=== PATIENT | male | born 1965 | race Two or more races ===

== ENCOUNTER 2025-05-26 15:25 | Inpatient (IN) | payer MEDICARE, MEDICAID ==
[~2025-05-26] VITALS: Ht 175.3 cm; Wt 76.0 kg
[2025-05-26] MEDS: SODIUM CHLORIDE 0.9% 1,000 ML IV ONE ×2 (15:52→16:18)
[2025-05-26] MEDS: FAMOTIDINE 20 MG/2 ML VIAL IVP ONE (15:53)
[2025-05-26] MEDS: ACETAMINOPHEN 500 MG TABLET PO ONE (15:53)
[2025-05-26] MEDS ORDERED: MIDAZOLAM HCL 2 MG/2 ML VIAL ONE (15:54)
[2025-05-26] MEDS ORDERED: FentaNYL CITRATE PF 100 MCG/2 ML VIAL ONE (15:54)
[2025-05-26 15:55] LABS: PLATELET COUNT (AUTO) 160 K/uL (150-450); RED BLOOD CELL COUNT(AUTO) 4.43 MIL/uL (4.50-5.90); RED CELL DISTRIBUTION WIDTH 16.0 % (11.5-14.5); WHITE BLOOD COUNT (AUTO) 9.2 K/uL (4.5-11.0)
[2025-05-26 16:13] LABS: TROPONIN I-HIGH SENSITIVITY 7 ng/L (<76)
[2025-05-26] MEDS ORDERED: MAGNESIUM HYDROXIDE SUSPENSION 30 ML UDCUP PO PRN (16:15)
[2025-05-26] MEDS ORDERED: ACETAMINOPHEN 325 MG TABLET PO PRN (16:15)
[2025-05-26] MEDS: MORPHINE SULFATE 2 MG/ML SYRINGE IVP ONE (16:19)
[2025-05-26] MEDS: PANTOPRAZOLE SODIUM 40 MG/VIAL IVP SCH (16:19)
[2025-05-26 16:24] LABS: CREATINE KINASE, TOTAL ONLY 16.0 U/L (39-308)
[2025-05-26 16:29] LABS: COVID AG,FIA SOURCE NASAL SWAB
[2025-05-26 16:31] LABS: CALCIUM, TOTAL 8.1 mg/dL (8.8-10.5); CREATININE 1.57 mg/dL (0.60-1.30); GLOMERULAR FILTR. RATE CALC 45.0 mL/min (>60); GLUCOSE,RANDOM 109.0 mg/dL (70-110); SODIUM SERUM 141.0 mmol/L (136-145); UREA NITROGEN, BLOOD 36.0 mg/dL (7-18)
[2025-05-26 16:45] LABS: ASPARTATE AMINOTRANSFERASE 17.0 U/L (15-37); TOTAL PROTEIN, SERUM 6.4 g/dL (6.4-8.2)
[2025-05-26 16:53] LABS: SARS-COV2 (COVID) ANTIGEN,FIA Negative (Negative)
[2025-05-26 16:54] LABS: INFLUENZA TYPE A NEGATIVE FOR TYPE A (NEGATIVE); INFLUENZA TYPE B NEGATIVE FOR TYPE B (NEGATIVE)
[2025-05-26] MEDS ORDERED: LIDOCAINE/PF 2% 5 ML VIAL ONE (17:26)
[2025-05-26] MEDS ORDERED: PROPOFOL 1% 20 ML VIAL IVP ONE (17:26)
[2025-05-26] MEDS ORDERED: ROCURONIUM BROMIDE 10 MG/ML 5 ML VIAL ONE (17:26)
[2025-05-26] MEDS ORDERED: SUGAMMADEX SODIUM 200 MG/2 ML VIAL IVP ONE (17:26)
[2025-05-26] MEDS ORDERED: DEXAMETHASONE SOD PHOS 4 MG/ML VIAL ONE (17:26)
[2025-05-26] MEDS ORDERED: ONDANSETRON HCL 4 MG/2 ML VIAL ONE (17:26)
[2025-05-26 18:22] LABS: PH,URINE DRUG SCREEN 5.5 (5.0-8.0)
[2025-05-26 18:23] LABS: APPEARANCE,URINE HAZY (CLEAR); GLUCOSE, URINE (UA) NEGATIVE (NEGATIVE); LEUKOCYTE ESTERASE ,URINE MODERATE (NEGATIVE); NITRATE,URINE POSITIVE (NEGATIVE); OCCULT BLOOD,URINE SMALL (NEGATIVE); SPECIFIC GRAVITIY, URINE 1.017 (1.003-1.030)
[2025-05-26 18:54] LABS: ALCOHOL, URINE DRUG SCREEN NEGATIVE (NEGATIVE); AMPHET/METH SCREEN,URINE NEGATIVE (NEGATIVE); BARBITURATE SCREEN, URINE NEGATIVE (NEGATIVE); CANNABINOID SCREEN,URINE POSITIVE (NEGATIVE); COCAINE SCREEN,URINE NEGATIVE (NEGATIVE); METHADONE SCREEN, URINE NEGATIVE (NEGATIVE)
[2025-05-26 19:15] LABS: SQUAMOUS EPITHELIAL CELL,UR Few /LPF (None Seen)
[2025-05-26] MEDS: PIPERACILLIN SODIUM/TAZOBACTAM 4.5 GM in DEXTROSE 5%-WATER 100 ML IV ONE (20:51)
[2025-05-26] MEDS: MORPHINE SULFATE 2 MG/ML SYRINGE IVP PRN (20:51)
[2025-05-27] VITALS (28 sets, daily range): BP systolic 86–161; BP diastolic 43–94; PULSE 44–133; RESP 12–27; TEMP 97.2–98; O2SAT 50–100
[2025-05-27] MEDS ORDERED: RINGERS SOLUTION,LACTATED 1,000 ML IV ONE ×4 (00:11→16:45)
[2025-05-27] MEDS: BUPIVACAINE LIPOSOME/PF 1.3%-13.3MG/ML SUSP 20 ML VIAL INJ ONE (00:30)
[2025-05-27] MEDS ORDERED: SODIUM CHLORIDE 0.9% 1,000 ML ONE (01:56)
[2025-05-27] MEDS: BUPIVACAINE HCL/PF 0.25% 30 ML VIAL ONE (02:10)
[2025-05-27 03:03] LABS: ABG BASE EXCESS -8.3 mmol/L (-2.0-3.0); ABG CARBOXYHEMOGLOBIN 0.7 % (0.5-1.5); ABG HCO3 17.7 mmol/L (21.0-28.0); ABG METHEMOGLOBIN 0.3 % (0.0-1.5); ABG OXYGEN CONTENT 14.7 mL/dL (15.0-23.0); ABG OXYGEN SATURATION 95.8 % (94.0-98.0); ABG OXYHEMOGLOBIN 94.8 % (94.0-98.0); ABG PCO2 50 mmHg (32.0-48.0); ABG TOTAL HEMOGLOBIN 10.9 G/dL (13.5-17.5); FRACTIONATED INSPIRED OXYGEN 50.0 % (21-100.0); PO2, ARTERIAL BG 106.8 mmHg (83.0-108.0); SOURCE, BLOOD GAS ARTERIAL; TEMPERATURE, FAHRENHEIT, BG 97.5 FAHREN (96.0-98.6)
[2025-05-27 03:15] LABS: PLATELET COUNT (AUTO) 179 K/uL (150-450); RED BLOOD CELL COUNT(AUTO) 3.76 MIL/uL (4.50-5.90); RED CELL DISTRIBUTION WIDTH 16.6 % (11.5-14.5); WHITE BLOOD COUNT (AUTO) 17.5 K/uL (4.5-11.0)
[2025-05-27] MEDS ORDERED: SODIUM CHLORIDE 0.9% 500 ML IV ONE ×3 (03:18→22:00)
[2025-05-27 03:22] LABS: ABG PH 7.207 (7.350-7.450); SITE, BLOOD GAS RT RADIAL
[2025-05-27 03:23] LABS: ABG A-A DIFF O2 193.9 mmHg (10-20.0); ALLEN TEST, BLOOD GAS Positive; O2 DEVICE,BLOOD GAS VENTILATOR (ROOM AIR); PATIENT RATE, BG 12.0 min.; PEEP,BG 5 cm H2O; SET RATE, BG 12.0 min.; SPONTANEOUS VT, BG 514 ml; VT, ABG 500 ml
[2025-05-27] MEDS: FentaNYL CIT 1000MCG/0.9% NACL 100 ML IV PRN (03:26)
[2025-05-27 03:29] LABS: CALCIUM, TOTAL 7.5 mg/dL (8.8-10.5); CREATININE 1.32 mg/dL (0.60-1.30); GLOMERULAR FILTR. RATE CALC 56.0 mL/min (>60); GLUCOSE,RANDOM 182.0 mg/dL (70-110); SODIUM SERUM 140.0 mmol/L (136-145); UREA NITROGEN, BLOOD 29.0 mg/dL (7-18)
[2025-05-27 03:34] LABS: ASPARTATE AMINOTRANSFERASE 35.0 U/L (15-37); TOTAL PROTEIN, SERUM 5.2 g/dL (6.4-8.2)
[2025-05-27] MEDS: PROPOFOL 1000 MG/ISO-OSM 100 ML IV PRN (04:05)
[2025-05-27 07:56] LABS: ABG BASE EXCESS -6.3 mmol/L (-2.0-3.0); ABG CARBOXYHEMOGLOBIN 0.3 % (0.5-1.5); ABG HCO3 19.9 mmol/L (21.0-28.0); ABG METHEMOGLOBIN 0.2 % (0.0-1.5); ABG OXYGEN CONTENT 13.3 mL/dL (15.0-23.0); ABG OXYGEN SATURATION 97.7 % (94.0-98.0); ABG OXYHEMOGLOBIN 97.2 % (94.0-98.0); ABG PCO2 31 mmHg (32.0-48.0); ABG PH 7.394 (7.350-7.450); ABG TOTAL HEMOGLOBIN 9.4 G/dL (13.5-17.5); ALLEN TEST, BLOOD GAS Positive; FRACTIONATED INSPIRED OXYGEN 50.0 % (21-100.0); O2 DEVICE,BLOOD GAS VENTILATOR (ROOM AIR); PATIENT RATE, BG 16.0 min.; PEEP,BG 5 cm H2O; PO2, ARTERIAL BG 188.3 mmHg (83.0-108.0); SET RATE, BG 16.0 min.; SITE, BLOOD GAS RT RADIAL; SOURCE, BLOOD GAS ARTERIAL; TEMPERATURE, FAHRENHEIT, BG 97.6 FAHREN (96.0-98.6); VT, ABG 500 ml
[2025-05-27 07:57] LABS: SPONTANEOUS VT, BG 520 ml
[2025-05-27] MEDS: PANTOPRAZOLE SODIUM 80 MG in SODIUM CHLORIDE 0.9% 100 ML IV SCH (10:35)
[2025-05-27] MEDS: NOREPINEPHRINE 8 MG/0.9 % NACL 250 ML IV PRN (12:39)
[2025-05-27] MEDS: *CLINICAL-MEROPENEM DOSING CLINICAL ONE (13:15)
[2025-05-27] MEDS: MEROPENEM 1 GM in SODIUM CHLORIDE 0.9% 50 ML IV SCH (14:27)
[2025-05-27] MEDS: CASPOFUNGIN ACETATE 70 MG in SODIUM CHLORIDE 0.9% 250 ML IV ONE (14:28)
[2025-05-27] MEDS ORDERED: KETAMINE HCL 50 MG/ML 10 ML VIAL ONE (15:59)
[2025-05-27] MEDS ORDERED: SODIUM CHLORIDE 0.9% 2,000 ML ONE (16:11)
[2025-05-27] MEDS ORDERED: SODIUM CHLORIDE 0.9% 250 ML IV ONE (17:30)
[2025-05-27] MEDS ORDERED: RINGERS SOLUTION,LACTATED 2,000 ML IV ONE (17:31)
[2025-05-27] MEDS ORDERED: ALBUMIN HUMAN 25%-12.5GM/50ML 50 ML ONE (17:33)
[2025-05-27] MEDS ORDERED: ALBUMIN HUMAN 5%-12.5GM/250ML 250 ML IV ONE (17:33)
[2025-05-28] VITALS (37 sets, daily range): BP systolic 90–171; BP diastolic 42–88; PULSE 41–71; RESP 9–29; TEMP 97.5–98.5; O2SAT 94–100
[2025-05-28] MEDS ORDERED: SODIUM CHLORIDE 0.9% 500 ML IV ONE ×2 (01:09→03:45)
[2025-05-28 06:17] LABS: PLATELET COUNT (AUTO) 217 K/uL (150-450); RED BLOOD CELL COUNT(AUTO) 2.05 MIL/uL (4.50-5.90); RED CELL DISTRIBUTION WIDTH 16.9 % (11.5-14.5); WHITE BLOOD COUNT (AUTO) 10.9 K/uL (4.5-11.0)
[2025-05-28 06:34] LABS: CALCIUM, TOTAL 7.2 mg/dL (8.8-10.5); CREATININE 0.99 mg/dL (0.60-1.30); GLOMERULAR FILTR. RATE CALC > 60 mL/min (>60); GLUCOSE,RANDOM 128 mg/dL (70-110); SODIUM SERUM 145 mmol/L (136-145); UREA NITROGEN, BLOOD 25 mg/dL (7-18)
[2025-05-28] MEDS: POTASSIUM CHLORIDE 20 MEQ ER TABLET PO PRN (06:42)
[2025-05-28] MEDS: POTASSIUM CHL 10 MEQ/WATER 50 ML IV PRN (07:01)
[2025-05-28] MEDS ORDERED: SODIUM CHLORIDE 0.9% 250 ML IV ONE (07:39)
[2025-05-28] MEDS: ONDANSETRON HCL 4 MG/2 ML VIAL IVP PRN ×2 (08:59→13:32)
[2025-05-28 10:47] LABS: ABG BASE EXCESS -0.7 mmol/L (-2.0-3.0); ABG CARBOXYHEMOGLOBIN 0.8 % (0.5-1.5); ABG HCO3 24.0 mmol/L (21.0-28.0); ABG METHEMOGLOBIN 0.3 % (0.0-1.5); ABG OXYGEN CONTENT 9.0 mL/dL (15.0-23.0); ABG OXYGEN SATURATION 98.5 % (94.0-98.0); ABG OXYHEMOGLOBIN 97.4 % (94.0-98.0); ABG PCO2 28 mmHg (32.0-48.0); ABG PH 7.513 (7.350-7.450); FRACTIONATED INSPIRED OXYGEN 30.0 % (21-100.0); PO2, ARTERIAL BG 163.7 mmHg (83.0-108.0); SOURCE, BLOOD GAS ARTERIAL; TEMPERATURE, FAHRENHEIT, BG 98.6 FAHREN (96.0-98.6)
[2025-05-28 10:50] LABS: ABG TOTAL HEMOGLOBIN 6.3 G/dL (13.5-17.5); ALLEN TEST, BLOOD GAS Positive; O2 DEVICE,BLOOD GAS VENTILATOR (ROOM AIR); SITE, BLOOD GAS ARTERIAL LINE
[2025-05-28 10:51] LABS: PEEP,BG 5 cm H2O; VENT MODE, BG SPONTANEOUS (ROOM AIR)
[2025-05-28 10:52] LABS: PRESSURE SUPPORT, BG 8 cm H2O; SPONTANEOUS VT, BG 705 ml
[2025-05-28] MEDS: CASPOFUNGIN ACETATE 50 MG in SODIUM CHLORIDE 0.9% 250 ML IV SCH (13:21)
[2025-05-28 15:37] LABS: PLATELET COUNT (AUTO) 238 K/uL (150-450); RED BLOOD CELL COUNT(AUTO) 2.90 MIL/uL (4.50-5.90); RED CELL DISTRIBUTION WIDTH 16.5 % (11.5-14.5); WHITE BLOOD COUNT (AUTO) 12.7 K/uL (4.5-11.0)
[2025-05-28] MEDS: MORPHINE SULFATE 2 MG/ML SYRINGE IVP ONE (18:06)
[2025-05-29] VITALS: BP 113/55; PULSE 42; RESP 12; TEMP 97.4; O2SAT 96
[2025-05-29 04:00] VITALS: BP 153/73; PULSE 56; RESP 20; TEMP 98; O2SAT 97
[2025-05-29 06:24] LABS: PLATELET COUNT (AUTO) 249 K/uL (150-450); RED BLOOD CELL COUNT(AUTO) 2.91 MIL/uL (4.50-5.90); RED CELL DISTRIBUTION WIDTH 16.4 % (11.5-14.5); WHITE BLOOD COUNT (AUTO) 11.8 K/uL (4.5-11.0)
[2025-05-29 06:37] LABS: CALCIUM, TOTAL 7.8 mg/dL (8.8-10.5); CREATININE 1.04 mg/dL (0.60-1.30); GLOMERULAR FILTR. RATE CALC > 60 mL/min (>60); GLUCOSE,RANDOM 89 mg/dL (70-110); SODIUM SERUM 145 mmol/L (136-145); UREA NITROGEN, BLOOD 26 mg/dL (7-18)
[2025-05-29 06:45] LABS: GLUCOMETER DEV NAME(LOC) ICU.S7; GLUCOSE,POINT OF CARE 144 MG/DL (70-110)
[2025-05-29 06:52] LABS: TROPONIN I-HIGH SENSITIVITY 37 ng/L (<76)
[2025-05-29 08:00] VITALS: BP 148/89; PULSE 41; RESP 16; TEMP 97.9; O2SAT 95
[2025-05-29] MEDS ORDERED: OxyCODONE HCL 5 MG IR TABLET PO PRN (10:15)
[2025-05-29] MEDS: OxyCODONE HCL 10 MG IR TABLET PO PRN (11:45)
[2025-05-29 12:00] VITALS: BP 137/79; PULSE 44; RESP 16; TEMP 97.9; O2SAT 94
[2025-05-29] MEDS ORDERED: SODIUM CHLORIDE 0.9% 250 ML IV ONE ×2 (14:21→21:22)
[2025-05-29 16:00] VITALS: BP 158/93; PULSE 53; RESP 20; TEMP 97.9; O2SAT 95
[2025-05-29 20:08] VITALS: BP 119/76; PULSE 42; PULSE 52; RESP 20; TEMP 98.4; O2SAT 96
[2025-05-30] VITALS (17 sets, daily range): BP systolic 118–148; BP diastolic 61–84; PULSE 35–72; RESP 16–20; TEMP 97.7–98.2; O2SAT 95–99
[2025-05-30] MEDS: OxyCODONE HCL 5 MG IR TABLET PO PRN (03:25)
[2025-05-30 04:24] LABS: PLATELET COUNT (AUTO) 306 K/uL (150-450); RED BLOOD CELL COUNT(AUTO) 3.13 MIL/uL (4.50-5.90); RED CELL DISTRIBUTION WIDTH 16.0 % (11.5-14.5); WHITE BLOOD COUNT (AUTO) 12.9 K/uL (4.5-11.0)
[2025-05-30 04:37] LABS: CALCIUM, TOTAL 8.0 mg/dL (8.8-10.5); CREATININE 0.99 mg/dL (0.60-1.30); GLOMERULAR FILTR. RATE CALC > 60 mL/min (>60); GLUCOSE,RANDOM 90 mg/dL (70-110); SODIUM SERUM 141 mmol/L (136-145); UREA NITROGEN, BLOOD 23 mg/dL (7-18)
[2025-05-30 04:44] LABS: BAND NEUTROPHILS % (MANUAL) 1 % (0-5); EOSINOPHILS % (MANUAL) 2 % (1-6); LYMPHOCYTES % (MANUAL) 18 % (22-44); MONOCYTES % (MANUAL) 8 % (2-9); SEGMENTED NEUTROPHILS % 71 % (40-70)
[2025-05-30] MEDS ORDERED: TRANEXAMIC ACID 1,000 MG/10 ML VIAL IVP ONE (08:03)
[2025-05-30] MEDS ORDERED: DEXAMETHASONE SOD PHOS 4 MG/ML VIAL IVP ONE (08:03)
[2025-05-30] MEDS ORDERED: PROPOFOL 1% ISO-OSM 1000 MG/100 ML BOTTLE IV ONE (08:03)
[2025-05-30] MEDS ORDERED: PHENYLEPHRINE HCL 10 MG/ML VIAL IVP ONE (08:03)
[2025-05-30] MEDS ORDERED: ROCURONIUM BROMIDE 10 MG/ML 5 ML VIAL IVP ONE (08:03)
[2025-05-30] MEDS: PANTOPRAZOLE SODIUM 40 MG/VIAL IVP SCH (21:24)
[2025-05-31] VITALS (9 sets, daily range): BP systolic 110–145; BP diastolic 73–92; PULSE 39–100; RESP 17–26; TEMP 97.7–98.4; O2SAT 95–99
[2025-05-31 07:19] LABS: CALCIUM, TOTAL 8.0 mg/dL (8.8-10.5); CREATININE 0.96 mg/dL (0.60-1.30); GLOMERULAR FILTR. RATE CALC > 60 mL/min (>60); GLUCOSE,RANDOM 101 mg/dL (70-110); SODIUM SERUM 144 mmol/L (136-145); UREA NITROGEN, BLOOD 17 mg/dL (7-18)
[2025-05-31 07:29] LABS: PLATELET COUNT (AUTO) 337 K/uL (150-450); RED BLOOD CELL COUNT(AUTO) 3.26 MIL/uL (4.50-5.90); RED CELL DISTRIBUTION WIDTH 15.6 % (11.5-14.5); WHITE BLOOD COUNT (AUTO) 15.0 K/uL (4.5-11.0)
[2025-05-31 08:49] LABS: BAND NEUTROPHILS % (MANUAL) 2 % (0-5); EOSINOPHILS % (MANUAL) 4 % (1-6); LYMPHOCYTES % (MANUAL) 15 % (22-44); MONOCYTES % (MANUAL) 4 % (2-9); NUCLEATED RED BLOOD CELLS 2.0 % (0.0-0.0); SEGMENTED NEUTROPHILS % 75 % (40-70)
[2025-05-31 08:50] LABS: RBC MORPHOLOGY COMMENT ABNORMAL R
[2025-05-31] MEDS ORDERED: SODIUM CHLORIDE 0.9% 250 ML IV ONE (14:51)
[2025-06-01] VITALS (9 sets, daily range): BP systolic 91–120; BP diastolic 60–77; PULSE 52–66; RESP 16–18; TEMP 98.1–99.7; O2SAT 94–98
[2025-06-01 07:31] LABS: PLATELET COUNT (AUTO) 314 K/uL (150-450); RED BLOOD CELL COUNT(AUTO) 3.27 MIL/uL (4.50-5.90); RED CELL DISTRIBUTION WIDTH 15.6 % (11.5-14.5); WHITE BLOOD COUNT (AUTO) 13.4 K/uL (4.5-11.0)
[2025-06-01 08:06] LABS: ASPARTATE AMINOTRANSFERASE 15 U/L (15-37); CALCIUM, TOTAL 7.8 mg/dL (8.8-10.5); CREATININE 0.92 mg/dL (0.60-1.30); GLOMERULAR FILTR. RATE CALC > 60 mL/min (>60); GLUCOSE,RANDOM 94 mg/dL (70-110); SODIUM SERUM 141 mmol/L (136-145); TOTAL PROTEIN, SERUM 5.1 g/dL (6.4-8.2); UREA NITROGEN, BLOOD 13 mg/dL (7-18)
[2025-06-01 11:08] LABS: BAND NEUTROPHILS % (MANUAL) 1 % (0-5); LYMPHOCYTES % (MANUAL) 23 % (22-44); METAMYELOCYTES % 2 % (0-0); MONOCYTES % (MANUAL) 1 % (2-9); NUCLEATED RED BLOOD CELLS 2.0 % (0.0-0.0); SEGMENTED NEUTROPHILS % 73 % (40-70)
[2025-06-01 11:09] LABS: RBC MORPHOLOGY COMMENT NORMAL RBC MORPH
[2025-06-02] VITALS (8 sets, daily range): BP systolic 97–124; BP diastolic 61–84; PULSE 54–72; RESP 17–18; TEMP 98.1–98.4; O2SAT 96–98
[2025-06-02 06:48] LABS: PLATELET COUNT (AUTO) 285 K/uL (150-450); RED BLOOD CELL COUNT(AUTO) 3.36 MIL/uL (4.50-5.90); RED CELL DISTRIBUTION WIDTH 15.8 % (11.5-14.5); WHITE BLOOD COUNT (AUTO) 13.1 K/uL (4.5-11.0)
[2025-06-02 06:56] LABS: CALCIUM, TOTAL 7.8 mg/dL (8.8-10.5); CREATININE 1.02 mg/dL (0.60-1.30); GLOMERULAR FILTR. RATE CALC > 60 mL/min (>60); GLUCOSE,RANDOM 88 mg/dL (70-110); SODIUM SERUM 141 mmol/L (136-145); UREA NITROGEN, BLOOD 13 mg/dL (7-18)
[2025-06-02] MEDS: MULTIVITAMINS WITH MINERALS, THERAPEUTIC TABLET PO SCH (08:19)
[2025-06-02 08:51] LABS: BAND NEUTROPHILS % (MANUAL) 1 % (0-5); LYMPHOCYTES % (MANUAL) 22 % (22-44); MONOCYTES % (MANUAL) 7 % (2-9); NUCLEATED RED BLOOD CELLS 1.0 % (0.0-0.0); SEGMENTED NEUTROPHILS % 70 % (40-70)
[2025-06-02 08:53] LABS: RBC MORPHOLOGY COMMENT ABNORMAL R
[2025-06-02] MEDS ORDERED: HAEMOPH B POLY CONJ-TET TOX/PF 10 MCG/0.5 ML VIAL IM. ONE ×2 (13:45→14:00)
[2025-06-02] MEDS: *CLINICAL-RX DOSING [ENTER DRUG IN COMMENTS] CLINICAL ONE ×3 (13:45)
[2025-06-02] MEDS: ERTAPENEM SODIUM 1 GM in SODIUM CHLORIDE 0.9% 50 ML IV SCH (22:36)
[2025-06-03 04:34] VITALS: BP 115/94; PULSE 64; RESP 18; TEMP 98.2; O2SAT 98
[2025-06-03 08:55] VITALS: BP 115/75; PULSE 60; RESP 18; TEMP 98.6; O2SAT 96
[2025-06-03 11:56] VITALS: BP 96/66; PULSE 66; RESP 18; TEMP 99; O2SAT 99
[2025-06-03] MEDS ORDERED: SODIUM CHLORIDE 0.9% 250 ML IV ONE (14:15)
[2025-06-03] MEDS: MENINGOCOCCAL B VACCINE,4-COMP 0.5 ML SYRINGE IM. ONE (14:41)
[2025-06-03 14:42] VITALS: BP 99/62; PULSE 68; RESP 18; TEMP 98.8; O2SAT 95
[2025-06-03] MEDS: HAEMOPH B POLY CONJ-TET TOX/PF 10 MCG/0.5 ML VIAL IM. ONE (14:48)
[2025-06-03] MEDS: PNEUMOC 20-VAL CONJ-DIP CRM/PF 0.5 ML SYRINGE IM. ONE (14:53)
[2025-06-03] MEDS: [UNRECOGNIZED DRUG - OTHER] IM. ONE (14:58)
[2025-06-03] MEDS ORDERED: [UNRECOGNIZED DRUG - CODE] IV (16:24)
[2025-06-03] MEDS ORDERED: ERTA1VIA9 IVPB (16:26)
[2025-06-03] MEDS ORDERED: PANT-31 PO (16:27)
[2025-06-03] MEDS ORDERED: MULT-14 PO (16:27)
[2025-06-03] MEDS ORDERED: ACET-2247 PO (16:28)
[2025-06-03] MEDS ORDERED: OXYC5 PO (16:29)
[2025-06-03] MEDS ORDERED: QUET25TA PO (16:29)
== END 2025-06-03 17:52 | DRG 853 ==
LOC: EMS 15:25 → EDH 16:04 → UNDOADMIN 16:04 → ICU 05-27 02:20 → 5N 05-29 20:29 → 6S 06-03 13:00
PROVIDERS: ADMIT Internal Medicine; ATTEND Internal Medicine
PROC: 0DQA0ZZ Repair Jejunum, Open Approach (ICD-10-PCS; 2025-05-27)
PROC: 0W9G0ZZ Drainage of Peritoneal Cavity, Open Approach (ICD-10-PCS; 2025-05-27)
PROC: 30233K1 Transfusion of Nonautologous Frozen Plasma into Peripheral Vein, Percutaneous Approach (ICD-10-PCS; 2025-05-27)
PROC: 5A1945Z Respiratory Ventilation, 24-96 Consecutive Hours (ICD-10-PCS; 2025-05-27)
PROC: 0BH17EZ Insertion of Endotracheal Airway into Trachea, Via Natural or Artificial Opening (ICD-10-PCS; 2025-05-27)
PROC: 30233N1 Transfusion of Nonautologous Red Blood Cells into Peripheral Vein, Percutaneous Approach (ICD-10-PCS; 2025-05-27)
PROC: 30233R1 Transfusion of Nonautologous Platelets into Peripheral Vein, Percutaneous Approach (ICD-10-PCS; 2025-05-27)
PROC: 30233M1 Transfusion of Nonautologous Plasma Cryoprecipitate into Peripheral Vein, Percutaneous Approach (ICD-10-PCS; 2025-05-27)
PROC: 07TP0ZZ Resection of Spleen, Open Approach (ICD-10-PCS; 2025-05-27)
PROC: 0WQF0ZZ Repair Abdominal Wall, Open Approach (ICD-10-PCS; 2025-05-27)
PROC: 0DNW0ZZ Release Peritoneum, Open Approach (ICD-10-PCS; principal; 2025-05-27 20:30)
PROC: 05HA33Z Insertion of Infusion Device into Left Brachial Vein, Percutaneous Approach (ICD-10-PCS; 2025-05-28)
DX: A41.9 Sepsis, unspecified organism (principal); J96.00 Acute respiratory failure, unspecified whether with hypoxia or hypercapnia; K28.5 Chronic or unspecified gastrojejunal ulcer with perforation; K65.1 Peritoneal abscess; K43.6 Other and unspecified ventral hernia with obstruction, without gangrene; N17.9 Acute kidney failure, unspecified; D68.9 Coagulation defect, unspecified; D62 Acute posthemorrhagic anemia; S36.039A Unspecified laceration of spleen, initial encounter; Z20.822 Contact with and (suspected) exposure to COVID-19; K76.89 Other specified diseases of liver; B96.20 Unspecified Escherichia coli [E. coli] as the cause of diseases classified elsewhere; G47.30 Sleep apnea, unspecified; E87.6 Hypokalemia; K66.0 Peritoneal adhesions (postprocedural) (postinfection); X58.XXXA Exposure to other specified factors, initial encounter; Y93.89 Activity, other specified; Y92.89 Other specified places as the place of occurrence of the external cause; Y99.8 Other external cause status; Z98.84 Bariatric surgery status; Z90.81 Acquired absence of spleen
CPT/HCPCS: 36569; 71045; 72040; 74018; 74019; 74176; 76937; 80048; 80053; 80307; 81001; 82550; 82805; 82962; 83690; 83880; 84132; 84443; 84484; 85025; 85610; 85730; 86850; 86900; 86901; 86923; 86927; 87040; 87070; 87077; 87081; 87086; 87186; 87205; 87804; 88302; 88307; 90648; 93005; 93306; 94002; 94003; 94760; 96374; 97110; 97116; 97163; 97530; 99285; G0238; G0378; J0637; J0666; J0690; J1100; J1171; J1335; J2185; J2250; J2270; J2405; J2470; J2543; J2704; J3010; J3480; J3490; J7030; J7040; J7050; J7060; J7120; P9012; P9016; P9017; P9035; P9041; P9047; 36415-L1; 36415-TC; Z5204